=== PATIENT | male | born 1960 | race Caucasian/White ===

== ENCOUNTER 2019-08-06 08:22 | Inpatient (IN) | payer OTHER ==
[2019-07-23 09:17] LABS: URINE BILIRUBIN NEGATIVE (Negative); URINE BLOOD NEGATIVE (Negative); URINE CLARITY CLEAR; URINE COLOR YELLOW; URINE GLUCOSE-RANDOM* NEGATIVE (Negative); URINE KETONES NEGATIVE (Negative); URINE LEUKOCYTES-REFLEX NEGATIVE (Negative); URINE NITRITE-REFLEX NEGATIVE (Negative); URINE PROTEIN (DIPSTICK) NEGATIVE (Negative); URINE UROBILINOGEN 0.2 E.U./dl (0.2-1.0)
[2019-07-23 09:29] LABS: HEMATOCRIT 44.9 % (42.0-52.0); HEMOGLOBIN 14.8 gm/dL (14.0-18.0); MCH 30.4 pg (26.0-34.0); MCV 92.4 fL (80.0-100.0); RBC 4.86 mil/uL (4.50-6.00); RDW 13.7 % (10.5-14.5)
[2019-07-23 09:34] LABS: ALBUMIN 4.7 g/dL (3.4-5.0); CALCIUM 9.5 mg/dL (8.5-10.1); CREATININE 0.8 mg/dL (0.7-1.3); POTASSIUM 4.3 mmol/L (3.5-5.1); PROTIME 9.8 Seconds (9.3-11.4)
--- NOTE | 2019-07-24 12:50 | EKG ---
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 Kitchen: joseph : 1960 Requested By: Jerald Flynn Order Number: [id number] MD: Claudy Hernandez Measurements Intervals [place] Rate: 64 P: 55 IA: 139 QRS: -8 QRSD: 111 T: 30 QT: 385 QTc: 398 Interpretive Statements Sinus rhythm Abnormal R-wave progression, early transition Compared to ECG 06/06/2004 11:46:32 Poor R-wave progression no longer present Electronically Signed On 07-24-2019 12:50:32 CDT by Claudy Hernandez [email or web address] <ELECTRONICALLY SIGNED> By: Claudy Hernandez MD 07/24/19 1250 4 4 Claudy Hernandez MD /ED
[~2019-08-06] VITALS: Ht 175.3 cm; Wt 114.3 kg
[~2019-08-06 08:22] MED LIST: ASPIR 8181 M1 PO; BENTYL 10 MG CA10 M1 PO; CELEBREX 200 M200 M1 PO; CENTRUM SILVER1 EAC2 PO; NEURONTIN 300300 M1 PO; ZOCOR40 MG PO
[2019-08-06 14:05] VITALS: BP 146/80
--- NOTE | 2019-08-06 19:35 | NUR ---
58 YO MALE ADMITTED TO [facility] BY CART FROM PACU AT 1840. A&OX4.
[2019-08-07 03:37] VITALS: BP 104/45
--- NOTE | 2019-08-07 04:55 | NUR ---
PATIENT ALERT AND ORIENTED X4. UP WITH ASSIST TO EDGE OF BED. DRESSING ON L KNEE D/I. EDISON DRESSING WITH POLAR ICE WRAPPED IN BALWINDER. SLEPT OFF AND ON DURING NIGHT. STATES PAIN IS DECREASING. HAD ONLY SCHEDULED PAIN MED.
[2019-08-07 06:16] LABS: HEMOGLOBIN 12.3 gm/dL (14.0-18.0); MCH 30.1 pg (26.0-34.0); MCHC 32.2 g/dL (28.0-37.0); MCV 93.3 fL (80.0-100.0); RBC 4.08 mil/uL (4.50-6.00); RDW 13.4 % (10.5-14.5); WBC 13.9 thou/uL (4.0-11.0)
[2019-08-07 07:50] VITALS: BP 152/56
[2019-08-07] MEDS ORDERED: ASPIR 8181 M1 PO (12:56)
--- NOTE | 2019-08-07 13:05 | NUR ---
INITIAL ASSESSMENT: Pt evaluated for d/c planning needs. Reviewed chart and spoke with nurse, PT and pt. Pt is alert and oriented. pt lives in house with spouse and was independent with ADL's prior to admission. Pt has CPAP at home. Pt plans on returning home on d/c from hospital and has made arrangements for outpatient physical therapy. Walker provided by [facility]. No other needs identified.
[2019-08-07 14:03] VITALS: BP 152/56
--- NOTE | 2019-08-07 16:58 | NUR ---
DISCHARGE PAPERS GONE OVER WITH PATIENT SIGNED AND COPY IN CHART IV ACSESS DCD RX GIVEN TO PATIENT. ALL BELONGINGS PACKED AND SENT WITH PATIENT. AT BEDSIDE.
[2019-08-07 17:04] VITALS: BP 152/56
--- NOTE | 2019-08-11 09:43 | O ---
[facility] [place] [address] OPERATIVE REPORT Name: BRET ROSS Room #: 441-P [facility] IN M.R.#: [id number] Admission: 08/06/19 Attend Phys: Jerald Flynn MD Discharge: 08/07/19 Date of : 58 Report #: [id number] THIS REPORT FOR: //name// CC: Debbie Flynn DATE OF SERVICE: 08/06/2019 PREOPERATIVE DIAGNOSIS: Left knee osteoarthritis. POSTOPERATIVE DIAGNOSIS: Left knee osteoarthritis. PROCEDURE: Left total knee arthroplasty using Navio robotic assistance. SURGEON: Jerald Flynn MD. POLISHER SAND: Sonya Merida PA-C. INDICATIONS FOR POLISHER SAND: Throughout the case, extensive manipulation of the knee was required. This was afforded to me by my assistant therapy aide. ANESTHESIA: LMA with an adductor canal block. IMPLANTS: Rubio [employer] Nephew size 5, Journey II BCS Oxinium femur, a size 5 tibia, size 10 polyethylene, and size 35 patella. TOURNIQUET TIME: 66 minutes. ESTIMATED BLOOD LOSS: 25 mL. COMPLICATIONS: None. SPECIMENS: None. CONDITION UPON LEAVING THE OPERATING ROOM: Stable. INDICATIONS FOR PROCEDURE: The patient is a 58-year-old gentleman with severe left knee osteoarthritis. He had failed conservative measures for this and after discussion with him, he elected for left total knee arthroplasty. DESCRIPTION OF PROCEDURE: Risks, benefits, alternatives, and complications were discussed in detail with the patient including but not limited to risk of anesthesia, risk of damage to nerves, arteries, blood vessels, risk for infection, bleeding, risk for continued knee pain, and need for reoperation. Informed consent was obtained from the patient. Left knee was appropriately marked in the preoperative holding area. Adductor canal block was placed by [facility] [address] [place] [address] OPERATIVE REPORT Name: BRET ROSS Room #: 441-P [facility] IN ..#: [id number] Admission: 08/06/19 Attend Phys: Jerald Flynn MD Discharge: 08/07/19 Date of : 58 Report #: [id number] anesthesia and he was brought to the operating room and placed in a supine position on operating room table. LMA anesthesia was induced without complication. Tourniquet was placed on the left thigh. Left lower extremity was prepped and draped in normal sterile fashion. A timeout was performed properly identifying the patient and procedure as well as the instrumentation and implants. All in the operating room were in agreement. Left lower extremity was exsanguinated, tourniquet was inflated. Tourniquet time was 66 minutes. Standard midline approach to knee was made with 10 blade through the skin. Dissection was taken down sharply to the fascia. Deep flaps were developed medially and laterally. Fresh 10 blade was used to make a medial parapatellar arthrotomy and the knee was inspected. There was severe medial compartment osteoarthritis with moderate lateral and patellofemoral osteoarthritis. ACL and PCL were removed sharply. Reference pins were placed in the femur and the tibia and the knee was then digitally mapped using the PaeDae robotic system. We sized the size 5 femur with a size 5 tibia and a 10 polyethylene spacer. After acceptance of the intraoperative plan, the distal femoral cut was made with a Navio jair. The distal femoral cutting block was pinned in place and the distal femoral cuts were made. Attention was turned to the tibia. The remainder of the menisci removed with Bovie cautery. Tibial resection guide was pinned in place using the Navio for placement. Tibial resection was made. After this, flexion and extension gaps were checked and found to be tight, both in flexion and extension. Medial osteophytes were removed from the tibia and this balanced the knee well. Tibia was sized, found to be a size 5. A size 5 tibial trial was placed, pinned and punched. A size 5 femoral trial was placed and the box cut was made. This was then trialed with a size 10 polyethylene. Knee was then taken through range of motion, found to be stable, and to have a 1-2 millimeter of laxity medially and laterally throughout range of motion. A 9-mm was taken off the posterior surface of the patella and a size 35 patellar trial button was placed. Knee was taken through range of motion, found to have good patellar tracking. After this, trial components were removed. Bony ends were thoroughly irrigated with normal saline. A final size 5 tibia, size 5 Journey II BCS Oxinium femur, and a size 35 patella were cemented in place using standard cementation techniques. While the cement cured, a periarticular injection consisting of morphine, ropivacaine, epinephrine, and Toradol was placed around the knee joint capsule. After the cement cured, the tourniquet was deflated. Hemostasis was obtained with Bovie cautery. Final size 10 polyethylene was placed. A gram of vancomycin was placed deep in the joint. Fascia was closed with 0 Vicryl, skin was closed with 2-0 Vicryl, skin monica, and a EDISON dressing was applied. The patient tolerated this procedure well and went to the recovery room under care of anesthesia postoperatively. <ELECTRONICALLY SIGNED> By: Jerald Flynn MD 08/11/19 0943 [id number] 49 Jerald Flynn MD /nt
== END 2019-08-07 17:30 | disposition home or self-care (01) | DRG 470 ==
LOC: PRE 08:22 → 4S 12:44 → TBA 12:44 → 4S 19:34 → ENTRNSPT 08-07 16:58 → 4S 08-07 17:30
PROVIDERS: ADMIT Orthopaedic Surgery
PROC: 8E0Y0CZ Robotic Assisted Procedure of Lower Extremity, Open Approach (ICD-10-PCS; principal; 2019-08-06)
PROC: 0SRD069 Replacement of Left Knee Joint with Oxidized Zirconium on Polyethylene Synthetic Substitute, Cemented, Open Approach (ICD-10-PCS; principal; 2019-08-06)
DX: M17.12 Unilateral primary osteoarthritis, left knee (principal); Z98.52 Vasectomy status; F17.210 Nicotine dependence, cigarettes, uncomplicated
CPT/HCPCS: 10102; 50010; 50101; 50415; 50954; 51130; 51225; 51320; 51412; 51771; 52001; 52282; 53000; 53078; 54118; 55372; 56527; 56528; 57095; 57103; 57110; 57127; 57179; 62110; 62900; 64039; 70005

== ENCOUNTER → 2020-05-28 | Outpatient (CLI) | payer OTHER | LOC: LAB 09:16 | PROVIDERS: ATTEND Anesthesiology | DX: Z01.812 Encounter for preprocedural laboratory examination (principal); Z11.59 Encounter for screening for other viral diseases ==